=== PATIENT | female | born 1950 | race Caucasian/White ===

== ENCOUNTER 2018-01-07 05:50 | Inpatient (IN) | payer OTHER ==
[~2018-01-07] VITALS: Ht 157.5 cm; Wt 73.5 kg
[~2018-01-07 05:50] MED LIST: BNC20 PO; CLX20 PO; TRAM-10 PO; TRAZ100T29 PO
[2018-01-07] MEDS ORDERED: NURSING VERBAL MED ORDER ONE (06:00)
[2018-01-07] MEDS ORDERED: BISMUTH SUBSALICYLATE PER ML OMNICELL CHARGE PO PRN (06:30)
[2018-01-07] MEDS ORDERED: hydrOXYzine HCL 25 MG TAB PO PRN (06:30)
[2018-01-07] MEDS ORDERED: MAGNESIUM HYDROXIDE SUSP 30 ML UDC PO PRN (06:30)
[2018-01-07] MEDS ORDERED: SODIUM CHLORIDE 0.65% NA SOLN 45 ML (OCEAN) PRN (06:30)
[2018-01-07] MEDS ORDERED: ALUMINUM/MAGNESIUM SUSP 30 ML UDC PO PRN (06:30)
[2018-01-07] MEDS ORDERED: ASPCH81X PO (09:24)
[2018-01-07] MEDS ORDERED: BENZ100C84 PO (09:24)
[2018-01-07] MEDS ORDERED: ALBUAER INH (09:24)
[2018-01-07] MEDS ORDERED: ATOR-24 PO (09:24)
[2018-01-07 09:56] VITALS: BP 135/79; PULSE 92; TEMP 37.3; Ht 157.5 cm; Wt 73.5 kg
[2018-01-07] MEDS ORDERED: LEVO75TA PO (10:03)
[2018-01-07] MEDS ORDERED: HYDR25CA PO (10:03)
[2018-01-07] MEDS ORDERED: MIRT1TAB27 PO (10:03)
[2018-01-07] MEDS ORDERED: FURO-85 PO (10:03)
[2018-01-07] MEDS ORDERED: ANSHCCR/ TOP (10:03)
[2018-01-07] MEDS ORDERED: LORA-741 PO (10:03)
[2018-01-07] MEDS ORDERED: METO25TA4 PO (10:03)
[2018-01-07] MEDS ORDERED: ESCI10TA17 PO (10:03)
[2018-01-07] MEDS ORDERED: PRLSR20 PO (10:10)
[2018-01-07] MEDS ORDERED: RISP1TAB68 PO (10:10)
[2018-01-07] MEDS ORDERED: SUCR1TAB29 PO (10:10)
[2018-01-07] MEDS ORDERED: RISP0.5T10 PO (10:10)
[2018-01-07] MEDS ORDERED: POTA10CA28 PO (10:10)
[2018-01-07] MEDS ORDERED: NTRGSL/4 SL (10:10)
[2018-01-07 10:26] VITALS: BP 135/79; PULSE 92; TEMP 37.3
[2018-01-07] MEDS ORDERED: BENZONATATE 100MG CAP PO PRN (10:45)
[2018-01-07] MEDS ORDERED: ALBUTEROL HFA 8 GM INHALER INH PRN (10:45)
[2018-01-07] MEDS ORDERED: NITROGLYCERIN 0.4 MG SL PER TAB CHARGE SL PRN (10:45)
[2018-01-07] MEDS ORDERED: HYDROCORTISONE 1% CR 30 GM TUBE EXT PRN (10:45)
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
[2018-01-07] MEDS: SUCRALFATE 1 GM TAB PO SCH ×3 (12:35→20:54)
[2018-01-07] MEDS: POTASSIUM CHLORIDE 10 MEQ TABCR PO SCH (12:35)
[2018-01-07] MEDS: RISPERIDONE 1 MG TAB PO SCH (20:55)
[2018-01-07] MEDS: MIRTAZAPINE TAB 15 MG TAB PO SCH (20:55)
[2018-01-08 07:16] VITALS: BP_SYST 132; BP_SYST 142; BP_DIAS 86; PULSE 81; PULSE 83; TEMP 36.8
[2018-01-08] MEDS ORDERED: ATORVASTATIN 20 MG TAB PO SCH (09:00)
[2018-01-08] MEDS: ATORVASTATIN 40 MG TAB PO SCH (09:15)
[2018-01-08] MEDS: FUROSEMIDE 20 MG TAB PO SCH (09:15)
[2018-01-08] MEDS: SUCRALFATE 1 GM TAB PO SCH ×2 (09:15→11:49)
[2018-01-08] MEDS: PANTOprazole SOD 40 MG TAB PO SCH (09:15)
[2018-01-08] MEDS: ESCITALOPRAM OXALATE 10 MG TAB PO SCH (09:15)
[2018-01-08] MEDS: ASPIRIN 81 MG CHEW PO SCH (09:15)
[2018-01-08] MEDS: LEVOTHYROXINE 75 MCG TAB PO SCH (09:15)
[2018-01-08] MEDS: METOPROLOL SUCC 25MG EXT REL TAB PO SCH (09:16)
[2018-01-08] MEDS: RISPERIDONE 0.5 MG TAB PO SCH (09:16)
--- NOTE | 2018-01-08 10:44 | Psychiatric Progress Notes ---
Progress Note Date of Service Jan 08, 2018. Interval History Gloria Jarvis is a 67-year-old female admitted on Jan 07, 2018 at 08:10 who currently lives in [place] alone, has a history of recurrent depression and borderline personality traits, and was admitted voluntarily after presenting to [facility] with suicidal ideation. She was just hospitalized on their BHU from 12/29 - 01/05/18, and returned the their ER the day after she was discharged. Chief Complaint "I've been trying to call my friend for a ride home; I signed the 72, you know? ". Subjective Patient was seen & assessed interval progress reviewed with Nursing. Staff reports patient has submitted her 72-hour notice which would be up on 01/10. It was reported this was due to patient not enjoying the meals that are served. Pt states she has been "pretty good" and feels that her mood is improving "a bit ". Pt states she is attempting to set up transportation for discharge and requests to use her cell phone to call a friend. Pt was assured that staff new about this request and would meet with her when they were available. Pt states , "I was in a really bad mood yesterday", but feels that she is less irritable and better able to tolerate groups thus far today. Pt denies side effects with continuation of reported home medications. Discussed possibility to increase escitalopram during her stay to target mood to which patient is agreeable. Pt denies SI or auditory hallucinations at encounter today. She denies other concerns or needs today. Review of Systems Psych: denies symptoms other than stated above Constitutional: denied Cardiovascular: denied GI: denied Neurologic: denied Remainder of 10 body systems also reviewed and denied other than noted above. Sleep Information Total Hours of Sleep: 8.00 Meal Information Percent of Lunch Consumed: 100 Percent of Dinner Consumed: 100 Mental Status Exam During interview pt is: alert and oriented, cooperative Appearance: disheveled (poor dentition, unkempt) Eye contact is: poor (often staring across room; does not appear to be a response to internal stimuli, but rather disengagement) Motor behavior is: no abnormal motor movements Speech: normal in rate, rhythm & volume Affect: mood congruent, depressed Mood is: depressed Thought process: goal directed, concrete Thought content: reality based without delusions Suicidal thought are: denied, Plan: present, Intent: denied (plan to hang herself prior to admission) Homicidal thoughts are: denied Hallucinations: auditory, visual Cognition: language grossly intact, other (likely impairment in memory and attention) Intelligence estimated to be: below average Insight: impaired Judgement: impaired MOCA 09/08, missing 4 points for visuospatial/executive function, 4 points for attention, 2 points for language, 2 points for abstraction, 5 points for memory , and 3 points for orientation. Impression Pt reports recognizing her irritability yesterday upon presentation. She reports she is feeling better today and is noticing an improvement in mood. Pt reports she has been referred for mobile medication management to assist with compliance. Pt unable to identify supports for family meeting; however would be beneficial to have meeting with her sister prior to discharge as patient currently lives alone. Discussed potential medication changes, but would likely be beneficial to observe patient's mood today prior to alterations, as she states she was in a bad mood yesterday and "was not myself". Will continue to evaluate need for increase in escitalopram. Pt has signed 72-hour notice which is up on Friday, 01/10. Pt will require inpatient mental health treatment until that time as risk factors have not yet been addressed and patient remains at high-risk of self harm if discharged prematurely. MNPR discontinued as risk factors have been addressed. Evaluation for bed bugs/ fleas completed last evening with no reported evidence of infestation in hospital room. Records were also reviewed to assess reported need for oxygen at night. Pt is reported to have received that recommendation during an illness , and oxygen was never supplied prior to resolution of the pneumonia. Due to resolution of these factors, and verbal agreement from patient for roommate - will plan to have MNPR discontinued. Plan (1) Depression 01/07 -it is difficult to tell if her hallucinations are truly a psychotic depression, are related to her intellectual limitations, or a part of a borderline personality disorder. Also cannot rule out a component of delirium, as urinalysis was not obtained at the outside facility and she is prescribed numerous medications which she may not take appropriately. -Check a UA to rule out UTI. -Ideally, we would have a friend or family member bring in all of her medications from home so that old outdated prescriptions can be disposed of. She is incapable of managing her medications independently, and would recommend multiple med management or a higher level of supervision at home, keeping medications locked, and dispensing them daily to decrease risk of intentional or accidental overdose. -Patient indicates she does not want to live alone and would like to explore options for assisted living or personal long term. We should enlist her outpatient employment evaluator/case manager in this as it may take some time to identify an appropriate placement. -Get records from outpatient psychiatrist, Dr. Nguyen, to clarify past med trials and any recent med changes. For now continue reported home medications, including escitalopram 10 mg daily, mirtazapine 7.5 mg nightly, and risperidone 0.5 mg every morning and 1 mg nightly. Consider increasing escitalopram to target mood. -Although patient reported being on Lorazepam and it was listed on the outside hospital records, the PDMP show she has not filled the prescription since June. This is probably not the best medication for her, given her history of alcohol dependence, her age, her poor cognitive functioning, overdose risk, and polypharmacy. Would not recommend she be prescribed benzodiazepines or other medications that are addictive, abusable, or likely to worsen her cognitive functioning. -Hydroxyzine as needed for anxiety and sleep. -Family meeting with sister. -Every 15 minute checks for safety. -Attend groups and therapy, work on healthy coping skills and a discharge safety plan. -Refer for psych rehab and therapy in her [place]. -Fasting labs were performed earlier this month at [facility] , we will get the results. 01/08 - Continue escitalopram 10mg for now until mood is better evaluated; continue risperidone 0.5mg/1mg and mirtazapine 7.5mg qHS. - Awaiting records from outpatient psychiatrist - Family meeting with sister or other identified supports if willing. (2) Intellectual disability 01/07-contact employment evaluator/case manager to clarify her IQ, suspect at least borderline intellectual functioning. -Outside hospital records also indicate a history of mild neurocognitive disorder, we will attempt to get records from the PCP to clarify this. -MOCA 09/08, missing 4 points for visuospatial/executive function, 4 points for attention, 2 points for language, 2 points for abstraction, 5 points for memory , and 3 points for orientation. (3) Borderline Personality Traits Per records. Refer for outpatient therapy. (4) Insect bite 01/07 -no readily identifiable insect bites, but diffuse small excoriated areas where she has been scratching that are now scabbed over. No signs of infection noted. Patient reports these are itchy, will prescribe hydrocortisone cream 3 times daily as needed and continue to monitor. Encouraged the patient to contact friends or family to have an surveillance specialist come into her home while she is in the hospital so that the past can be identified and eradicated prior to discharge. Nursing staff have already activated the hospital protocol for bedbugs, but could also represent fleas or some other infestation. -Medically necessary private room for infection control. 01/08 - Room checks performed last evening to evaluation for bedbugs/fleas. Non observed with performance of hospital protocol. D/C MNPR. (5) Hyperlipidemia Continue home dose of atorvastatin. (6) Asthma Continue home meds. Patient states she is on oxygen at night; we will contact PCPs office to determine details that she does not know the amount. 01/08 - Reports for PCP indicate patient is not currently on oxygen. O2 sats monitored last evening, with no indication of nighttime desaturation. Will d/c MNPR. (7) Chronic back pain Acetaminophen as needed. (8) Hypothyroidism (9) GERD (gastroesophageal reflux disease) Continue home meds. (10) Hypertension Continue home dose of furosemide. Discharge / Aftercare Planning Primary Care Physician: Name: Dr. Jen Omalley ( [place] ) Therapist: Name: none Credit Counselor: Name: Virginia Osullivan ( [facility] ) ( office ) Visit Code E&M Code: 68680 Inventory Assets Strengths: Willing for treatment, supportive sister, has an outpatient psychiatrist and employment evaluator/case manager Needs: Increased outpatient services, supervised living environment, assistance with medications, treatment of medical issues Risk Factors Assessment : Yes /single/: Yes Higher / Fall in social status: No Health problems: Yes Mental Health Diagnoses: Yes Substance use disorders: No Previous attempt: Yes Family history of suicide: No Previous psychiatric stay: Yes Hopelessness: Yes Smoker: No Protective Factors Assessment Taoism beliefs: No : No Responsible for young children: No Employed: No Stable relationships: No Supportive family: Yes Good rapport with provider: No Data Vital Signs Last 24 Hrs: Date Time Temp Pulse Resp B/P (MAP) Pulse Ox O2 Delivery O2 Flow Rate FiO2 01/08/18 07:16 36.8 81 16 142/86 83 132/86 01/07/18 10:26 37.3 92 14 135/79 Meds Administered Last 24 Hrs: Meds Administered (Past 24Hrs) Medications (Trade) Dose Ordered Sig/Emma Route Start Time Stop Time Status Last Admin Dose Admin Aspirin (Aspirin Chew) 81 mg DAILY PO 01/08/18 09:00 02/07/18 08:59 01/08/18 09:15 81 MG Escitalopram Oxalate (Lexapro Tab) 10 mg DAILY PO 01/08/18 09:00 02/07/18 08:59 01/08/18 09:15 10 MG Furosemide (Lasix Tab) 20 mg DAILY PO 01/08/18 09:00 02/07/18 08:59 01/08/18 09:15 20 MG Levothyroxine Sodium (Synthroid Tab) 75 mcg DAILYBB PO 01/08/18 08:00 02/07/18 07:59 01/08/18 09:15 75 MCG Metoprolol Succinate (Toprol Xl Tab) 25 mg DAILY PO 01/08/18 09:00 02/07/18 08:59 01/08/18 09:16 25 MG Potassium Chloride (Klor-Con M10) 10 meq Q2D PO 01/07/18 10:45 02/06/18 10:44 01/07/18 12:35 10 MEQ Risperidone (Risperdal Tab) 0.5 mg DAILY PO 01/08/18 09:00 02/07/18 08:59 01/08/18 09:16 0.5 MG Risperidone (Risperdal Tab) 1 mg HS PO 01/07/18 22:00 02/06/18 21:59 01/07/18 20:55 1 MG Sucralfate (Carafate Tab) 1 gm QID PO 01/07/18 12:00 02/06/18 11:59 01/08/18 09:15 1 GM Mirtazapine (Remeron Tab) 7.5 mg HS PO 01/07/18 22:00 02/06/18 21:59 01/07/18 20:55 7.5 MG Pantoprazole Sodium (Protonix Tab) 40 mg DAILY PO 01/08/18 09:00 02/07/18 08:59 01/08/18 09:15 40 MG Atorvastatin Calcium (Lipitor Tab) 40 mg DAILY PO 01/08/18 09:00 02/07/18 08:59 01/08/18 09:15 40 MG Lab Results Last 24 Hrs: Last 24 Hours Test 01/07/18 10:30 Urine Color YELLOW Urine Appearance CLEAR Urine pH 5.5 Urine Specific [place] 1.022 Urine Protein NEG Urine Glucose (UA) NEG Urine Ketones NEG Urine Occult Blood TRACE Urine Nitrite NEG Urine Bilirubin NEG Urine Urobilinogen NEG Urine Leukocyte Esterase MODERATE Urine WBC (Auto) 10-30 /hpf Urine RBC (Auto) 0-4 /hpf Urine Hyaline Casts (Auto) 0 /lpf Urine Epithelial Cells (Auto) 5-10 /lpf Urine Bacteria (Auto) NEG Problem Qualifiers (1) Depression: Depression Type: major depressive disorder Major depression recurrence: recurrent Major depression episode severity: severe Psychotic features: with psychotic features
[2018-01-08] MEDS: ACETAMINOPHEN 325 MG TAB PO PRN ×2 (11:50→21:00)
--- NOTE | 2018-01-08 13:09 | Medical Student: BHU Only ---
Psychiatric Progress Note Date of Service: Jan 08, 2018. SUBJECTIVE: Gloria Jarvis is a 67-year-old female who was admitted to the [facility] on 01/07/18 on 201 voluntary commitment for severe worsening depression and suicidal ideations with plan to hang herself. She was previously diagnosed with anxiety, borderline personality traits, and MDD with psychotic features due to her auditory and visual hallucinations. Today, Gloria complains how she is not doing well because she does not like the food here, although she eats all of her meals. She went to the community meeting yesterday and today but complains that she does not like some of the participants. She slept better last night for 8 hours. Her mood has also improved, rating it as a 6/10. She is not endorsing suicidal ideations today. Her last visual hallucination was yesterday morning on the unit when she saw her roommate. She can not recall the last time she had an auditory hallucination. She continues to have itchiness on her extremities but states the hydrocortisone cream is helping. Per nursing staff, her oxygen saturation was 92% overnight. Her PCP stated she is not on oxygen. She has a family meeting set up for Friday with her sister, Evelyne. Staff was unable to find blood lam or bed bugs overnight in her room. ROS: Patient complains of mild back pain related to scoliosis and itchiness on her back, abdomen, and extremities; otherwise non-contributory MSE: Appearance is that of a poorly groomed female who appears her stated age. The patient is generally cooperative with the interview, although she has difficulty answering many questions. Eye contact is appropriate. Motor behavior is normal. Speech: Normal volume, slow rate, normal tone. Affect: Flat and restricted. Mood : Depressed. Thought process: Goal directed but unable to remember past events due to cognition. Thought content: Denies HI and SI. Perception: Endorses chronic visual and auditory hallucinations, although she does not remember last auditory hallucination; experienced visual hallucination yesterday morning. Cognition: A MOCA test was given for which she scored a 10/30, missing 4 points for visuospatial/executive function, 4 points for attention, 2 points for language, 2 points for abstraction, 5 points for memory, and 3 points for orientation. Intelligence is estimated to be below average. Insight is estimated to be impaired due to cognition. Judgment is estimated to be impaired due to cognition. ASSESSMENT: Gloria Jarvis is a 67-year-old female who was admitted to the [facility] on 01/07/18 on 201 voluntary commitment for severe worsening depression and suicidal ideations with plan to hang herself. She was previously diagnosed with anxiety, borderline personality traits, and MDD with psychotic features due to her auditory and visual hallucinations, but it is difficult to gain more information regarding these hallucinations due to her degree of cognitive impairment. These hallucinations may be due to depression, borderline personality disorder, or delirium. Psychotic features in MDD typically do not cause chronic hallucinations, but Gloria can not give a clear answer to how long the hallucinations have been occurring for. She is prescribed Risperidone but there is a need for further information from her psychiatrist to determine if this medication is working to control her hallucinations. Gloria manages her medications herself, but due to her cognitive impairment, does not know what medications she is taking. Therefore, there is some concern as to whether she is even taking her medications properly. Her nurse case manager will be contacted to determine if she is eligible for assisted living which will help with stressors and medication management. RECOMMENDATIONS: 1. Major Depressive Disorder - Continue q15 minute safety checks - Encourage participation in groups - Continue Lexapro 10 mg daily - Continue Remeron 7.5 mg daily - Continue risperidone 0.5 mg in AM, 1 mg in PM - UA obtained to determine whether delirium is playing a role in hallucinations or degree of cognitive impairment- negative for nitrites, mod high leukocyte esterase, awaiting culture; metabolic panel from outside hospital was unremarkable - Obtain more information from Dr. Nguyen, psychiatrist, regarding medication history - Patient has not filled Ativan since June; this medication is to be avoided in older individuals and those with cognitive impairment 2. Anxiety - Continue Lexapro - Continue Vistaril 50 mg PRN for insomnia and 25 mg q4h PRN for anxiety 3. Borderline Personality Traits - Encourage participation in groups - May be contributing to hallucinations 4. Possible bed bugs/fleas - Start hydrocortisone cream TID for itching - Nursing staff has initiated protocol for bed bugs including washing clothes in hot water, encouraging showers; did not find blood lam or bugs last night on inspection 5. Hypertension - Continue Lasix 20 mg and KCl 10 mEq q2days - Continue metoprolol 25 mg daily 6. GERD - Continue Protonix 40 mg and sucralfate 1 gm QID daily 7. Hyperlipidemia - Continue Lipitor 40 mg daily 8. Hypothyroidism - Continue Synthroid 75 mcg daily 9. Back pain - Start acetaminophen 650 mg q4h for pain 10. Asthma - O2 sat 92% on room air last night; PCP indicated she does not use oxygen nightly - Continue monitor
[2018-01-08] MEDS: SUCRALFATE 1 GM/10 ML UDC PO SCH ×3 (13:40→20:56)
[2018-01-08] MEDS: RISPERIDONE 1 MG TAB PO SCH (20:56)
[2018-01-08] MEDS: MIRTAZAPINE TAB 15 MG TAB PO SCH (20:56)
[2018-01-09 06:48] VITALS: BP_SYST 122; BP_SYST 156; BP_DIAS 74; PULSE 76; PULSE 91; TEMP 36.9
[2018-01-09] MEDS: ACETAMINOPHEN 325 MG TAB PO PRN ×2 (07:35→16:40)
[2018-01-09] MEDS: ASPIRIN 81 MG CHEW PO SCH (07:36)
[2018-01-09] MEDS: SUCRALFATE 1 GM/10 ML UDC PO SCH ×4 (07:36→21:38)
[2018-01-09] MEDS: LEVOTHYROXINE 75 MCG TAB PO SCH (07:36)
[2018-01-09] MEDS: FUROSEMIDE 20 MG TAB PO SCH (07:36)
[2018-01-09] MEDS: ATORVASTATIN 40 MG TAB PO SCH (07:36)
[2018-01-09] MEDS: ESCITALOPRAM OXALATE 10 MG TAB PO SCH (07:36)
[2018-01-09] MEDS: PANTOprazole SOD 40 MG TAB PO SCH (07:37)
[2018-01-09] MEDS: RISPERIDONE 0.5 MG TAB PO SCH (07:37)
[2018-01-09] MEDS: METOPROLOL SUCC 25MG EXT REL TAB PO SCH (07:37)
[2018-01-09] MEDS: POTASSIUM CHLORIDE 10 MEQ TABCR PO SCH (11:08)
[2018-01-09] MEDS: hydrOXYzine HCL 25 MG TAB PO PRN ×2 (11:08→20:40)
--- NOTE | 2018-01-09 11:24 | Medical Student: BHU Only ---
Psychiatric Progress Note Date of Service: Jan 09, 2018. SUBJECTIVE: Gloria Jarvis is a 67-year-old female who was admitted to the [facility] on 01/07/18 on 201 voluntary commitment for severe worsening depression and suicidal ideations with plan to hang herself. She was previously diagnosed with anxiety, borderline personality traits, and MDD with psychotic features due to her auditory and visual hallucinations. Today, Gloria states that she really enjoyed the pot roast for dinner last night and eats all her meals. She has been attending groups and is actively participating during them. She slept well , although she is unsure of how long she slept for. Her mood has also improved, rating it as a 9/10, and stating "I am feeling a lot better today." She is not endorsing suicidal ideations today. Her last visual hallucination was two days ago when she saw her roommate. She can not recall the last time she had an auditory hallucination. She continues to have mild itchiness on her extremities but states the hydrocortisone cream is helping. She has some back pain due to scoliosis, rated as 5/10, and requested Tylenol yesterday which helped. In regards to discharge planning, Gloria is concerned about transportation options. She states she could get an Uber to [place] but does not have any friends that could give her a ride. Her sister, Evelyne, also lives in [place] but is busy with work and can not give her a ride. She needs to go to [facility] in [place] to get money from the bank and is concerned about this as well. She has a family meeting today scheduled at 3 PM with her sister. Zoie, our psychiatric social worker supervisor, spoke to her test case developer [place] via phone who suggested using [facility] [employer] in [place]. She has referrals in place with mobile psych rehab and a continuing education specialist. She was scheduled to complete an initial intake with [facility] on Friday which will need to be rescheduled. ROS: CONSTITUTIONAL: Denied HEENT: Eyes: Denied. Ears, Nose, Throat: Denied. SKIN: Minor itchiness on extremities, belly, and back; otherwise denied. CARDIOVASCULAR: Denied. RESPIRATORY: Denied. GASTROINTESTINAL: Denied. GENITOURINARY: Denied. NEUROLOGICAL: Denied. MUSCULOSKELETAL: 5/10 back pain related to scoliosis; otherwise denied. HEMATOLOGIC: Denied. LYMPHATICS: Denied. PSYCHIATRIC: Denied other than what is stated above. PHYSICAL EXAM: Patient was medically cleared prior to admission on U Vitals: T 36.9, P 91, RR 18, BP 156/74 MEDICATIONS: Lexapro 10 mg daily Remeron 7.5 mg daily Risperidone 0.5 mg qAM, 1 mg qPM daily Vistaril 50 mg PRN for insomnia Vistaril 25 mg PRN for anxiety MSE: Appearance is that of a poorly groomed female with poor dentition who appears her stated age. The patient is generally cooperative with the interview. Eye contact is appropriate. Motor behavior is normal; no evidence of tardive dyskinesia, akathisia, or other abnormal motor movements. Speech: Normal volume, slow rate, normal tone. Affect: Flat and restricted. Mood : Depressed. Thought process: Goal directed but has difficulty answering questions due to cognition. Thought content: Denies HI and SI. Perception: Endorses chronic visual and auditory hallucinations, although she does not remember last auditory hallucination; experienced visual hallucination two days ago. Cognition: A MOCA test was given for which she scored a 10/30, missing 4 points for visuospatial/executive function, 4 points for attention, 2 points for language, 2 points for abstraction, 5 points for memory, and 3 points for orientation. Intelligence is estimated to be below average. Insight is estimated to be impaired due to cognition. Judgment is estimated to be impaired due to cognition. ASSESSMENT: Gloria Jarvis is a 67-year-old female who was admitted to the [facility] on 01/07/18 on 201 voluntary commitment for severe worsening depression and suicidal ideations with plan to hang herself. She was previously diagnosed with anxiety, borderline personality traits, and MDD with psychotic features due to her auditory and visual hallucinations, but it is difficult to gain more information regarding these hallucinations due to her degree of cognitive impairment. These hallucinations may be due to depression, borderline personality disorder, or delirium. Psychotic features in MDD typically do not cause chronic hallucinations, but Gloria can not give a clear answer to how long the hallucinations have been occurring for. She is prescribed Risperidone but there is a need for further information from her psychiatrist to determine if this medication is working to control her hallucinations. Gloria manages her medications herself, but due to her cognitive impairment, does not know what medications she is taking. Therefore, there is some concern as to whether she is even taking her medications properly. Her test case developer will be contacted to determine if she is eligible for assisted living which will help with stressors and medication management. RECOMMENDATIONS: 1. Major Depressive Disorder - Continue q15 minute safety checks - Encourage participation in groups - Continue Lexapro 10 mg daily - Continue Remeron 7.5 mg daily - Continue risperidone 0.5 mg in AM, 1 mg in PM; tolerating well. No evidence of tardive dyskinesia, akathisia, or other abnormal movements per exam. - UA obtained to determine whether delirium is playing a role in hallucinations or degree of cognitive impairment- negative for nitrites, mod high leukocyte esterase, preliminary culture results indicate "pinpoint growth present, re- incubating"; metabolic panel from outside hospital was unremarkable - Obtain more information from Dr. Nguyen, psychiatrist, regarding medication history - Patient has not filled Ativan since June; this medication is to be avoided in older individuals and those with cognitive impairment 2. Anxiety - Continue Lexapro - Continue Vistaril 50 mg PRN for insomnia and 25 mg q4h PRN for anxiety 3. Borderline Personality Traits - Encourage participation in groups - May be contributing to hallucinations - Outpatient therapy will be beneficial; CBT and DBT useful for BPD 4. Possible bed bugs/fleas - Start hydrocortisone cream TID for itching - Nursing staff has initiated protocol for bed bugs including washing clothes in hot water, encouraging showers; did not find blood lam or bugs on inspection 5. Hypertension - Continue Lasix 20 mg and KCl 10 mEq q2days - Continue metoprolol 25 mg daily 6. GERD - Continue Protonix 40 mg and sucralfate 1 gm QID daily 7. Hyperlipidemia - Continue Lipitor 40 mg daily 8. Hypothyroidism - Continue Synthroid 75 mcg daily 9. Back pain - Start acetaminophen 650 mg q4h PRN for pain 10. Asthma - O2 sat 92% on room air last night; PCP indicated she does not use oxygen nightly - Continue monitor Discharge planning: - Family meeting scheduled at 3 PM with sister Evelyne to discuss transportation options; will consider [facility] in [place] per test case developer - Social work has been in contact with test case developer, [place]. Referrals in place for mobile psych rehab and continuing education specialist. Will need to reschedule initial intake at [facility]. - Possible discharge tomorrow
--- NOTE | 2018-01-09 11:35 | Psych Management Progress Note ---
Psychiatry Miscellaneous Date of Service: Jan 09, 2018. Patient seen, MS assessed. Rates mood as 10/10, states she would like to use relaxation tapes as a coping skill for when she returns home. Encouraged cooperation with care and treatment plan as outlined by allied health prescriber. Family phone meeting this pm for discharge planning. I personally participated in treatment team and medical decision making around discharge as patient signed 72 hr notice which expires on 01/10/18.
--- NOTE | 2018-01-09 12:07 | Psychiatric Progress Notes ---
Progress Note Date of Service Jan 09, 2018. Interval History Gloria Jarvis is a 67-year-old female admitted on Jan 07, 2018 at 08:10 who currently lives in [place] alone, has a history of recurrent depression and borderline personality traits, and was admitted voluntarily after presenting to [facility] with suicidal ideation. She was just hospitalized on their BHU from 12/29 - 01/05/18, and returned the their ER the day after she was discharged. Chief Complaint "I'm just feeling out of it - that last group made me anxious". Subjective Patient was seen & assessed interval progress reviewed with Treatment Team. Pt has signed 72-hour notice which expires on 01/10. Staff reports patient is to have a family meeting with her sister via phone this afternoon. Pt has denied visual hallucinations since her admission. Pt was seen today to assess progress since admission. Pt states she is feeling overwhelmed as she feels sitting through long groups requiring processing causes her anxiety. Pt requested Vistaril, which she is given during our encounter. Pt states that despite her current anxiety, she is not feeling suicidal. Pt rates her current mood at a 5/10 (10=best) and rates her anxiety at a 7/10 (10=worst). When discussing most bothersome symptoms, the patient states she is struggling with anxiety. We discussed plan to increase Lexapro to target mood and anxiety to which she agreed. Pt denies SI and visual hallucinations at this encounter. Pt states, "I feel like I'm leaving here too early." Pt was asked about rescinding her 72-hour notice, and she agreed. She was walked to the nurses station where she proceeded to sign necessary paperwork. Review of Systems Psych: denies symptoms other than stated above Constitutional: denied Cardiovascular: denied GI: denied Neurologic: denied Remainder of 10 body systems also reviewed and denied other than noted above. Sleep Information Total Hours of Sleep: 8.00 Meal Information Percent of Breakfast Consumed: 100 Percent of Lunch Consumed: 100 Percent of Dinner Consumed: 100 Mental Status Exam During interview pt is: alert and oriented, cooperative Appearance: disheveled (poor dentition, unkempt, same clothes from yesterday) Eye contact is: poor (staring) Motor behavior is: no abnormal motor movements Speech: normal in rate, rhythm & volume Affect: mood congruent, blunted Mood is: depressed, anxious Thought process: goal directed, concrete Thought content: reality based without delusions Suicidal thought are: denied, Plan: present, Intent: denied (plan to hang herself prior to admission) Homicidal thoughts are: denied Hallucinations: denies auditory (since admission), denies visual (since admission) Cognition: language grossly intact, other (likely impairment in memory and attention) Intelligence estimated to be: below average Insight: impaired Judgement: impaired MOCA 09/08, missing 4 points for visuospatial/executive function, 4 points for attention, 2 points for language, 2 points for abstraction, 5 points for memory , and 3 points for orientation. Impression Current anxiety reported as patient finds it difficult to process information shared in groups for a long period of time. Discussed that anxiety is most bothersome symptoms currently and offered recommendation to increase Lexapro to target mood and anxiety. Will order 15mg to be given tomorrow morning. Risks, benefits, side effects, and alternatives were discussed. Pt verbalized understanding and was agreeable to the plan as stated above. Pt feels she is "leaving too early" and is willing to rescind 72-hour notice. Requires ongoing inpatient treatment in order to mitigate risk factors and adjust medications to target presenting symptoms. Pt remains at high risk of self-harm if discharged prematurely. Plan (1) Depression 01/07 -it is difficult to tell if her hallucinations are truly a psychotic depression, are related to her intellectual limitations, or a part of a borderline personality disorder. Also cannot rule out a component of delirium, as urinalysis was not obtained at the outside facility and she is prescribed numerous medications which she may not take appropriately. -Check a UA to rule out UTI. -Ideally, we would have a friend or family member bring in all of her medications from home so that old outdated prescriptions can be disposed of. She is incapable of managing her medications independently, and would recommend multiple med management or a higher level of supervision at home, keeping medications locked, and dispensing them daily to decrease risk of intentional or accidental overdose. -Patient indicates she does not want to live alone and would like to explore options for assisted living or personal detention. We should enlist her outpatient nurse case management in this as it may take some time to identify an appropriate placement. -Get records from outpatient psychiatrist, Dr. Nguyen, to clarify past med trials and any recent med changes. For now continue reported home medications, including escitalopram 10 mg daily, mirtazapine 7.5 mg nightly, and risperidone 0.5 mg every morning and 1 mg nightly. Consider increasing escitalopram to target mood. -Although patient reported being on Lorazepam and it was listed on the outside hospital records, the PDMP show she has not filled the prescription since June. This is probably not the best medication for her, given her history of alcohol dependence, her age, her poor cognitive functioning, overdose risk, and polypharmacy. Would not recommend she be prescribed benzodiazepines or other medications that are addictive, abusable, or likely to worsen her cognitive functioning. -Hydroxyzine as needed for anxiety and sleep. -Family meeting with sister. -Every 15 minute checks for safety. -Attend groups and therapy, work on healthy coping skills and a discharge safety plan. -Refer for psych rehab and therapy in [place]. -Fasting labs were performed earlier this month at [facility] , we will get the results. 01/08 - Continue escitalopram 10mg for now until mood is better evaluated; continue risperidone 0.5mg/1mg and mirtazapine 7.5mg qHS. - Awaiting records from outpatient psychiatrist - Family meeting with sister or other identified supports if willing. 01/09 - Escitalopram increased to 15mg qAM - Continue risperidone 0.5mg/1mg and mirtazapine 7.5mg qHS - Phone meeting scheduled today with sister - Rescinded 72-hour notice as she is willing for continued treatment. (2) Intellectual disability 01/07-contact nurse case management to clarify her IQ, suspect at least borderline intellectual functioning. -Outside hospital records also indicate a history of mild neurocognitive disorder, we will attempt to get records from the PCP to clarify this. -MOCA 09/08, missing 4 points for visuospatial/executive function, 4 points for attention, 2 points for language, 2 points for abstraction, 5 points for memory , and 3 points for orientation. (3) Borderline Personality Traits Per records. Refer for outpatient therapy. (4) Insect bite 01/07 -no readily identifiable insect bites, but diffuse small excoriated areas where she has been scratching that are now scabbed over. No signs of infection noted. Patient reports these are itchy, will prescribe hydrocortisone cream 3 times daily as needed and continue to monitor. Encouraged the patient to contact friends or family to have an industrial engineering technologist come into her home while she is in the hospital so that the past can be identified and eradicated prior to discharge. Nursing staff have already activated the hospital protocol for bedbugs, but could also represent fleas or some other infestation. -Medically necessary private room for infection control. 3/ - Room checks performed last evening to evaluation for bedbugs/fleas. Non observed with performance of hospital protocol. D/C MNPR. (5) Hyperlipidemia Continue home dose of atorvastatin. (6) Asthma Continue home meds. Patient states she is on oxygen at night; we will contact PCPs office to determine details that she does not know the amount. 3/ - Reports for PCP indicate patient is not currently on oxygen. O2 sats monitored last evening, with no indication of nighttime desaturation. Will d/c MNPR. (7) Chronic back pain Acetaminophen as needed. (8) Hypothyroidism (9) GERD (gastroesophageal reflux disease) Continue home meds. (10) Hypertension Continue home dose of furosemide. Discharge / Aftercare Planning Primary Care Physician: Name: Dr. Jen Omalley ( [place] ) Appointment Notes: [address], [place] [address] Therapist: Name: none Concrete Mason: Name: Virginia Osullivan ( [facility] ) ( office ) Appointment Notes: sees pt weekly Visit Code E&M Code: 03279 Inventory Assets Strengths: Willing for treatment, supportive sister, has an outpatient psychiatrist and nurse case management Needs: Increased outpatient services, supervised living environment, assistance with medications, treatment of medical issues Risk Factors Assessment : Yes /single/: Yes Higher / Fall in social status: No Health problems: Yes Mental Health Diagnoses: Yes Substance use disorders: No Previous attempt: Yes Family history of suicide: No Previous psychiatric stay: Yes Hopelessness: Yes Smoker: No Protective Factors Assessment Amish beliefs: No : No Responsible for young children: No Employed: No Stable relationships: No Supportive family: Yes Good rapport with provider: No Data Vital Signs Last 24 Hrs: Date Time Temp Pulse Resp B/P (MAP) Pulse Ox O2 Delivery O2 Flow Rate FiO2 01/09/18 06:48 36.9 76 18 122/74 91 156/74 Meds Administered Last 24 Hrs: Meds Administered (Past 24Hrs) Medications (Trade) Dose Ordered Sig/Emma Route Start Time Stop Time Status Last Admin Dose Admin Aspirin (Aspirin Chew) 81 mg DAILY PO 01/08/18 09:00 02/07/18 08:59 01/09/18 07:36 81 MG Escitalopram Oxalate (Lexapro Tab) 10 mg DAILY PO 01/08/18 09:00 01/09/18 11:29 DC 01/09/18 07:36 10 MG Furosemide (Lasix Tab) 20 mg DAILY PO 01/08/18 09:00 02/07/18 08:59 01/09/18 07:36 20 MG Levothyroxine Sodium (Synthroid Tab) 75 mcg DAILYBB PO 01/08/18 08:00 02/07/18 07:59 01/09/18 07:36 75 MCG Metoprolol Succinate (Toprol Xl Tab) 25 mg DAILY PO 01/08/18 09:00 02/07/18 08:59 01/09/18 07:37 25 MG Risperidone (Risperdal Tab) 0.5 mg DAILY PO 01/08/18 09:00 02/07/18 08:59 01/09/18 07:37 0.5 MG Risperidone (Risperdal Tab) 1 mg HS PO 01/07/18 22:00 02/06/18 21:59 01/08/18 20:56 1 MG Sucralfate (Carafate Tab) 1 gm QID PO 01/07/18 12:00 01/08/18 11:57 DC 01/08/18 09:15 1 GM Mirtazapine (Remeron Tab) 7.5 mg HS PO 01/07/18 22:00 02/06/18 21:59 01/08/18 20:56 7.5 MG Pantoprazole Sodium (Protonix Tab) 40 mg DAILY PO 01/08/18 09:00 02/07/18 08:59 01/09/18 07:37 40 MG Atorvastatin Calcium (Lipitor Tab) 40 mg DAILY PO 01/08/18 09:00 02/07/18 08:59 01/09/18 07:36 40 MG Sucralfate (Carafate Susp) 1 gm QID PO 01/08/18 12:00 02/07/18 11:59 01/09/18 07:36 1 GM Problem Qualifiers (1) Depression: Depression Type: major depressive disorder Major depression recurrence: recurrent Major depression episode severity: severe Psychotic features: with psychotic features
[2018-01-09] MEDS: MIRTAZAPINE TAB 15 MG TAB PO SCH (21:38)
[2018-01-09] MEDS: RISPERIDONE 1 MG TAB PO SCH (21:38)
[2018-01-10 07:07] VITALS: BP_SYST 146; BP_SYST 151; BP_DIAS 83; BP_DIAS 84; PULSE 82; PULSE 94; TEMP 36.8
[2018-01-10] MEDS: SUCRALFATE 1 GM/10 ML UDC PO SCH (08:37)
[2018-01-10] MEDS: LEVOTHYROXINE 75 MCG TAB PO SCH (08:38)
[2018-01-10] MEDS: ASPIRIN 81 MG CHEW PO SCH (08:38)
[2018-01-10] MEDS: FUROSEMIDE 20 MG TAB PO SCH (08:38)
[2018-01-10] MEDS: ATORVASTATIN 40 MG TAB PO SCH (08:40)
[2018-01-10] MEDS: RISPERIDONE 0.5 MG TAB PO SCH (08:40)
[2018-01-10] MEDS: PANTOprazole SOD 40 MG TAB PO SCH (08:40)
[2018-01-10] MEDS: METOPROLOL SUCC 25MG EXT REL TAB PO SCH (08:41)
[2018-01-10] MEDS ORDERED: ESCITALOPRAM OXALATE 10 MG TAB PO SCH (09:00)
--- NOTE | 2018-01-10 09:48 | Psychiatric Progress Notes ---
Psychiatric Progress Note Date of Service Jan 10, 2018. Notes Pt seen and assessed at time of discharge w/ Qing Briggs PA-C. She continues to deny suicidal ideation or intent. Reports resolution of command hallucinations. Reports anxiety is "gone this AM. Has made arrangements to stay with friend locally and able to articulate a safety plan to call 911 ( previously demonstrated ability) should she feel unable to maintain her safety outside of the hospital. Transition of care to outside providers discussed. Reviewed f/u scheduled 01/12/18 at [facility]. Would suggest re-referral (casework supervisor can facilitate) for mobile med management to help ensure compliance in home setting. I directly participated in medical decision making at time of discharge.
[2018-01-10] MEDS ORDERED: LXP10 PO (09:52)
[2018-01-10] MEDS ORDERED: MIRT1TAB27 PO (09:52)
[2018-01-10] MEDS ORDERED: RISP-99 PO (09:52)
[2018-01-10] MEDS ORDERED: RSP1 PO (09:52)
[2018-01-10] MEDS ORDERED: HYDR25CA PO (09:52)
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
== END 2018-01-10 11:30 | disposition home or self-care (01) | DRG 885 ==
LOC: C.MHU 08:10
PROVIDERS: ADMIT Psychiatry & Neurology Child & Adolescent Psychiatry; ATTEND Psychiatry & Neurology Psychiatry
DX: F33.3 Major depressive disorder, recurrent, severe with psychotic symptoms (principal); R45.851 Suicidal ideations; Q21.1 Atrial septal defect; S40.869A Insect bite (nonvenomous) of unspecified upper arm, initial encounter; S80.869A Insect bite (nonvenomous), unspecified lower leg, initial encounter; F79 Unspecified intellectual disabilities; J45.909 Unspecified asthma, uncomplicated; I10 Essential (primary) hypertension; E78.5 Hyperlipidemia, unspecified; E03.9 Hypothyroidism, unspecified; G89.29 Other chronic pain; M54.9 Dorsalgia, unspecified; K21.9 Gastro-esophageal reflux disease without esophagitis; F10.21 Alcohol dependence, in remission; Z79.899 Other long term (current) drug therapy; Z79.82 Long term (current) use of aspirin; Z95.2 Presence of prosthetic heart valve; Z88.0 Allergy status to penicillin; Z88.2 Allergy status to sulfonamides; W57.XXXA Bitten or stung by nonvenomous insect and other nonvenomous arthropods, initial encounter; Y99.8 Other external cause status